=== PATIENT | female | born 1975 | race Caucasian/White ===

== ENCOUNTER 2021-01-05 19:55 | Observation (INO) ==
[2021-01-05 20:27] LABS: Basophils % 0.5 %; Eosinophils # 0.2 K/mcL (0.0-0.6); Eosinophils % 3.5 %; Hematocrit 42.5 % (35.3-44.9); Hemoglobin 13.8 g/dL (11.5-15.4); Immature Granulocytes % 0.3 % (0-4); Lymphocytes # 3.3 K/mcL (0.6-4.6); Lymphocytes % 52.5 %; Mean Corpuscular HGB Conc 32.5 g/dL (31.6-35.5); Mean Corpuscular Hemoglobin 31.4 pg (28.0-33.3); Mean Corpuscular Volume 96.6 fL (83.0-100.0); Mean Platelet Volume 9.6 fL (9.4-12.4); Monocytes # 0.7 K/mcL (0.0-1.3); Monocytes % 11.1 %; Platelet Count 341 K/mcL (140-400); Red Cell Distribution Width 12.9 % (11.5-14.5); Segmented Neutrophils % 32.1 %; White Blood Count 6.2 K/mcL (4.3-11.1)
[2021-01-05 20:42] LABS: Bilirubin,Urine Negative (Negative); Blood,Urine Negative (Negative); Clarity,Urine Clear (Clear); Color,Urine Light-Yellow (Yellow); Glucose,Urine (UA) Normal (Normal); Ketones,Urine Negative (Negative); Leukocyte Esterase,Urine Small (Negative); Mucus,Urine Few per lpf (None-Few); Nitrite,Urine Negative (Negative); Protein,Urine Trace mg/dL (Neg-Trace); RBC,Urine 0-3 per hpf (0-3); Specific Gravity,Urine 1.024 (1.010-1.025); Squamous Epithelial Cell,Urine Moderate per hpf (None-Few); Urobilinogen,Urine Normal (Normal)
[2021-01-05 20:50] LABS: Alanine Aminotransferase 26 Units/L (7-52); Albumin 4.2 g/dL (3.5-5.7); Albumin/Globulin Ratio 1.4 (1.1-2.2); Alkaline Phosphatase 76 Units/L (34-104); BUN/Creatinine Ratio 21 (6-26); Bilirubin,Indirect 0.2 mg/dL (0.0-1.0); Bilirubin,Total 0.2 mg/dL (0.3-1.0); Blood Urea Nitrogen 19 mg/dL (6-20); C-Reactive Protein < 5 mg/L (Less than 10); Calcium 9.3 mg/dL (8.6-10.3); Carbon Dioxide 26 mEq/L (23-29); Chloride 105 mEq/L (98-107); Globulin 3.1 g/dL (2.4-3.5); Glucose 78 mg/dL (70-105); Lactate Dehydrogenase 246 Units/L (140-271); Osmolality,Calculated 291 (280-300); Phosphorous 3.5 mg/dL (2.7-4.5); Potassium 3.5 mEq/L (3.5-5.1); Sodium 140 mEq/L (136-145); Total Protein 7.3 g/dL (6.4-8.9); eGFR For African Americans > 60 (> 60); eGFR For Non-African Americans > 60 (> 60)
[2021-01-05 21:25] LABS: Ferritin 49 ng/mL (10-120); Troponin I 0.04 ng/mL (< 0.04)
[2021-01-05 21:39] LABS: Aspartate Amino Transferase 76 Units/L (13-39)
[2021-01-05 21:41] LABS: Adenovirus Not Detected (Not Detect); Bordetella Pertussis Not Detected (Not Detect); Chlamydophila pneumoniae Not Detected (Not Detect); Coronavirus 229E Not Detected (Not Detect); Coronavirus HKU1 Not Detected (Not Detect); Coronavirus NL63 Not Detected (Not Detect); Coronavirus OC43 Not Detected (Not Detect); Human Metapneumovirus Not Detected (Not Detect); Human Rhinovirus/Enterovirus DETECTED (Not Detect); Influenza A Subtype 2009 H1 Not Detected (Not Detect); Influenza B Not Detected (Not Detect); Mycoplasma pneumoniae Not Detected (Not Detect); Parainfluenza Virus 1 Not Detected (Not Detect); Parainfluenza Virus 2 Not Detected (Not Detect); Parainfluenza Virus 3 Not Detected (Not Detect); Parainfluenza Virus 4 Not Detected (Not Detect); Respiratory Syncytial Virus Not Detected (Not Detect); SARS-CoV-2 Not Detected (Not Detect)
[2021-01-05] MEDS ORDERED: Aspirin 81 MG TAB.CHEW PO STA (21:46)
[2021-01-05] MEDS: Nitroglycerin 0.4 MG TAB.SUBL SL SCH ×2 (21:52→22:09)
[2021-01-05] MEDS ORDERED: Nicotine 21 MG PATCH.TD24 TD ONE (22:15)
[2021-01-05] MEDS ORDERED: Ondansetron 4 MG/2 ML VIAL IVP PRN (22:57)
[2021-01-05] MEDS ORDERED: Acetaminophen 325 MG TABLET PO PRN (22:57)
[2021-01-05] MEDS ORDERED: Naloxone 0.4 MG/ML INJ IVP PRN (22:57)
[2021-01-05] MEDS ORDERED: Melatonin 3 MG TABLET PO PRN (22:57)
[2021-01-05] MEDS ORDERED: Azithromycin 500 MG in D5% in Water 250 ML IVPB SCH (23:00)
[2021-01-05] MEDS ORDERED: Albuterol 2.5 MG/3 ML NEBULIZER IH PRN (23:19)
[2021-01-05] MEDS ORDERED: GuaiFENesin Liq 200 MG/10 ML UDC PO PRN (23:19)
[2021-01-05] MEDS ORDERED: Perflutren Lipid Microsphere 1.3 ML in 0.9 % Sodium Chloride 8.7 ML IVP PRN (23:42)
[2021-01-06] MEDS: Nitroglycerin 0.4 MG TAB.SUBL SL SCH (00:43)
[2021-01-06] MEDS: Gabapentin 300 MG CAPSULE PO SCH ×2 (00:57→07:59)
[2021-01-06] MEDS: *HR* LORazepam 1 MG TABLET PO SCH ×2 (00:57→07:59)
[2021-01-06] MEDS ORDERED: *HR* Heparin 5,000 UNIT/ML VIAL SQ SCH (06:00)
[2021-01-06] MEDS ORDERED: methylPREDNISolone 125 MG/2 ML VIAL IVP ONE (06:52)
[2021-01-06 07:26] VITALS: BP 112/77
[2021-01-06] MEDS ORDERED: Ipratropium/Albuterol Neb 3 ML IH ONE (09:15)
== END 2021-01-06 11:21 | disposition home or self-care (01) ==
LOC: 3BNU 19:55 → EMEROOARM 19:55 → SUATTDRO 22:03 → 3BNU 22:43
PROVIDERS: ADMIT Family Medicine; ATTEND Internal Medicine